=== PATIENT | male | born 1960 | race African-American/Black ===

== ENCOUNTER 2024-07-28 13:08 | Inpatient (IN) | payer OTHER ==
[2024-07-28 13:36] VITALS: BMI 17.4
[2024-07-28] MEDS ORDERED: BENZONATATE 200 MG CAPSULE PO PRN (13:59)
[2024-07-28] MEDS ORDERED: POLYETHYLENE GLYCOL (HEALTHYLAX) 3350 17 GM PACKET PO PRN (13:59)
[2024-07-28] MEDS ORDERED: guaiFENesin 600 MG TABLET.ER (FP) PO PRN (13:59)
[2024-07-28] MEDS ORDERED: NALOXONE (NARCAN) HCL 4 MG/0.1 ML SPRAY NS PRN (13:59)
[2024-07-28] MEDS ORDERED: BENZOCAINE/MENTHOL (CHLORASEPTIC ) LOZENGE MM PRN (13:59)
[2024-07-28] MEDS ORDERED: METHOCARBAMOL 500 MG TABLET PO PRN (13:59)
[2024-07-28] MEDS ORDERED: ACETAMINOPHEN 325 MG TABLET (FP) PO PRN (13:59)
[2024-07-28] MEDS ORDERED: hydrOXYzine PAMOATE 25 MG CAPSULE (FP) PO PRN (13:59)
[2024-07-28] MEDS ORDERED: ONDANSETRON *ODT* 4 MG TABLET SL PRN (13:59)
[2024-07-28] MEDS ORDERED: NICOTINE POLACRILEX 4 MG GUM BUC PRN (13:59)
[2024-07-28] MEDS ORDERED: BISMUTH SUBSALICYLATE 524 MG/30 ML PO PRN (13:59)
[2024-07-28] MEDS ORDERED: DICYCLOMINE HCL 10 MG CAPSULE PO PRN (13:59)
[2024-07-28] MEDS ORDERED: LOPERAMIDE HCL 2 MG CAPSULE PO PRN (13:59)
[2024-07-28] MEDS ORDERED: IBUPROFEN 400 MG TABLET (FP) PO PRN (13:59)
[2024-07-28] MEDS ORDERED: MAG HYDROX/AL HYDROX/SIMETH 30 ML UNIT-DOSE CUP PO PRN (13:59)
[2024-07-28] MEDS ORDERED: MAGNESIUM HYDROX 2400MG/30ML ORAL SUSPENSION 30 ML CUP PO PRN (13:59)
[2024-07-28] MEDS ORDERED: diazePAM 5 MG TABLET PO PRN (14:02)
[2024-07-28] MEDS: diazePAM 5 MG TABLET PO SCH (17:25)
[2024-07-28] MEDS: NALTREXONE HCL 50 MG TABLET PO ONE (17:41)
[2024-07-28] MEDS ORDERED: MIRTAZAPINE 15 MG TABLET (FP) PO SCH (22:00)
[2024-07-28] MEDS: TRIAMCINOLONE ACET 0.1% OINT 15 GM TUBE TP SCH (22:52)
[2024-07-28] MEDS: THIAMINE 100 MG TABLET PO SCH (22:52)
[2024-07-28] MEDS: MELATONIN 5 MG TABLETS PO SCH (22:53)
[2024-07-29] MEDS: ELVITEG/COB/EMTRI/TENOF (GENVOYA) TABLET PO SCH (08:00)
[2024-07-29] MEDS: NICOTINE 14 MG/24 HOURS TOPICAL PATCH TD SCH (10:56)
[2024-07-29] MEDS: NALTREXONE HCL 50 MG TABLET PO SCH (10:56)
[2024-07-29] MEDS: PRENATAL VITAMINS W/ FOLIC ACID TABLET (FP) PO SCH (10:56)
[2024-07-29 11:42] LABS: HEMATOCRIT 41.6 % (35.4-49); HEMOGLOBIN 13.7 GM/dL (11.7-16.9); MCH 30.9 pg (25.7-33.7); MCHC 32.9 g/dl (32.0-35.9); MEAN CELL VOLUME 93.8 fl (80-96); MEAN PLT VOLUME 9.1 fl (7.5-11.1); PLATELET COUNT 389 10^3/uL (134-434); RBC 4.43 M/mm3 (4.00-5.60); RDW 14.4 % (11.9-15.9); WHITE BLOOD COUNT 4.7 K/mm3 (4.0-10.0)
[2024-07-29 12:09] LABS: POTASSIUM 3.8 mmol/L (3.5-5.1)
[2024-07-29 12:18] LABS: ALBUMIN 3.4 g/dl (3.4-5.0); BLOOD UREA NITROGEN 6.6 mg/dL (7-18); CALCIUM 9.3 mg/dL (8.5-10.1)
[2024-07-29 12:21] LABS: CREATININE 0.7 mg/dL (0.55-1.3)
[2024-07-29 12:23] LABS: BILIRUBIN,TOTAL 0.4 mg/dL (0.2-1); TOT PROT 8.4 g/dl (6.4-8.2)
[2024-07-29] MEDS ORDERED: ALBUTEROL SO4 HFA INHALER IH PRN (12:28)
[2024-07-29] MEDS: MELATONIN 5 MG TABLETS PO SCH (22:33)
[2024-07-29] MEDS: ATORVASTATIN CA 20 MG TABLET (FP) PO SCH (22:34)
[2024-07-30] MEDS: diazePAM 5 MG TABLET PO SCH (06:09)
[2024-07-30] MEDS: TIOTROPIUM BROMIDE 2.5 MCG (SPIRIVA) RESPIMAT INHALER IH SCH (09:20)
[2024-07-30] MEDS: ASPIRIN 81 MG CHEWABLE TABLETS PO SCH (09:20)
[2024-07-30] MEDS: PENICILLIN G BENZATHINE 2,400,000 UNIT/4 ML PFS IM ONE (09:30)
[2024-07-30] MEDS ORDERED: TIOTROPIUM BROMIDE 2.5 MCG (SPIRIVA) RESPIMAT INHALER IH SCH (10:00)
[2024-07-31] MEDS: diazePAM 5 MG TABLET PO SCH (06:11)
[2024-07-31 20:52] VITALS: RESP 17
[2024-07-31] MEDS: IBUPROFEN 600 MG TABLET (FP) PO PRN (23:11)
[2024-08-01] MEDS: diazePAM 5 MG TABLET PO ONE (06:26)
[2024-08-01 07:36] VITALS: BP 112/84; PULSE 98; TEMP 98
== END 2024-08-01 09:49 | disposition other institution (70) | DRG 774 ==
LOC: YASAS 13:08 → Y6N 14:00
PROVIDERS: ADMIT Allergy & Immunology; ATTEND Allergy & Immunology
PROC: HZ2ZZZZ Detoxification Services for Substance Abuse Treatment (ICD-10-PCS; principal; 2024-07-28)
DX: F10.230 Alcohol dependence with withdrawal, uncomplicated (principal); F14.20 Cocaine dependence, uncomplicated; F17.210 Nicotine dependence, cigarettes, uncomplicated; F19.24 Other psychoactive substance dependence with psychoactive substance-induced mood disorder; F19.282 Other psychoactive substance dependence with psychoactive substance-induced sleep disorder; F41.8 Other specified anxiety disorders; Z21 Asymptomatic human immunodeficiency virus [HIV] infection status; I10 Essential (primary) hypertension; J44.9 Chronic obstructive pulmonary disease, unspecified; E78.5 Hyperlipidemia, unspecified; A53.9 Syphilis, unspecified; B35.1 Tinea unguium; R63.6 Underweight; Z68.1 Body mass index [BMI] 19.9 or less, adult
CPT/HCPCS: 36415; 80053; 80305; 80307; 85027; 86593; 86780; 93005; 93010